=== PATIENT | male | born 1955 | race Caucasian/White ===

== ENCOUNTER 2018-05-07 06:40 | Day surgery (SDC) | payer OTHER ==
[~2018-05-07] VITALS: Ht 182.9 cm; Wt 115.9 kg
[2018-05-07] MEDS ORDERED: PLAVIX75 MG PO (07:04)
[2018-05-07 07:11] VITALS: Ht 182.9 cm; Wt 115.9 kg
[2018-05-07] MEDS ORDERED: METFORMIN HCL500 M1 PO (07:14)
[2018-05-07] MEDS ORDERED: NIACIN250 M1 PO (07:14)
[2018-05-07] MEDS ORDERED: MECLIZINE HCL25 MG PO (07:15)
[2018-05-07] MEDS ORDERED: GEMFIBROZIL600 MG PO (07:15)
[2018-05-07] MEDS ORDERED: ISOSORBIDE MONO30 M1 PO (07:16)
[2018-05-07] MEDS ORDERED: TOPROL XL25 MG PO (07:17)
[2018-05-07] MEDS ORDERED: BETAPACE160 MG PO (07:17)
[2018-05-07] MEDS ORDERED: CLARITIN 10 MG10 MG PO (07:17)
[2018-05-07] MEDS ORDERED: FLOMAX0.4 MG PO (07:19)
[2018-05-07] MEDS ORDERED: FAMOTIDINE10 MG PO (07:19)
[2018-05-07] MEDS ORDERED: ALLER-CHLOR4 MG PO (07:22)
[2018-05-07] MEDS ORDERED: ZOLOFT100 MG PO (07:22)
[2018-05-07 07:53] LABS: ANION GAP 16.6 mmol/L (8-16); CALCIUM 8.4 mg/dL (8.5-10.1); CARBON DIOXIDE 20.7 mmol/L (21.0-32.0); CREATININE - SERUM 1.1 mg/dL (0.6-1.3); POTASSIUM - SERUM 4.3 mmol/L (3.5-5.1)
[2018-05-07 08:29] LABS: BASOPHILS 1.3 % (0-2); EOSINOPHILS 9.1 % (0-7); HEMATOCRIT 37.3 % (42.0-54.0); HEMOGLOBIN 12.3 g/dL (13.5-17.5); IMMATURE GRANULOCYTES 0.2 % (0-5); LYMPHOCYTES 24.6 % (15-50); MCH 30.6 pg (26.0-34.0); MCV 92.8 fL (80.0-100.0); MEAN PLATELET VOLUME 11.2 fL (7.4-10.4); MONOCYTES 11.1 % (2-11); NEUTROPHILS 53.7 % (40-80); PLATELET COUNT 257 10x3/uL (130-400); RBC 4.02 10x6/uL (4.20-6.10); RDW 13.5 % (11.5-14.5); WBC 6.3 10x3/uL (4.8-10.8)
--- NOTE | 2018-05-07 16:48 | NUR ---
PER DR. AMY DC WHEN CRITERIA MET.
--- NOTE | 2018-05-07 17:32 | NUR ---
DC INSTRUCTIONS GIVEN TO PT. STATES UNDERSTANDING. DC'D IV CATH FULLY INTACT.
--- NOTE | 2018-05-07 18:16 | NUR ---
PT LEFT UNIT VIA WC AT 1812
--- NOTE | 2018-05-08 22:13 | OP ---
PATIENT NAME: MEENA ALVAREZ MEDICAL RECORD: [id number] :57 LOCATION:D.OPS ADMISSION DATE: SURGEON: DELMY REYES MD DATE OF OPERATION: 05/07/2018 PRINCIPAL DIAGNOSES: 1. Hematochezia. 2. History of a colorectal polypoid mass at 20 cm. POSTOPERATIVE DIAGNOSES: 1. Hematochezia. 2. History of a colorectal polypoid mass at 20 cm. This appeared to be a 5-cm carpeting polyp. PROCEDURES: 1. Total colonoscopy to cecum. 2. Polypectomy utilizing endoscopic mucosal resection as well as argon plasma coagulation therapy. 3. Tattooing proximal and distal to the polyp. SURGEON: Delmy Reyes MD [employer]AL [employer]ARD SUPERVISOR: None. BLOOD LOSS: Minimal. ANESTHESIA: IV sedation. COMPLICATIONS: None. The patient has only been off Plavix for one day. I would like for him to stay off Plavix for additional 4 days after the procedure as he is going to be at risk for both post-polypectomy syndrome as well as post-polypectomy bleeding. I have dismissed him back to the snf on Flagyl. It will be normal for him to have some minor bleeding after this procedure due to the large size of the polyp. OPERATIVE COURSE: The patient was conveyed to the GI lab electively on 05/07/2018. IV sedation was induced by the anesthesia staff. The patient was placed in the Rubin position. A digital rectal examination was performed. A colonoscope was inserted through the anus. It was easily advanced to the cecum. The prep was adequate. The patient has had a history of inadequate preps, but this prep was adequate. I slowly withdrew the endoscope. A combination of normal imaging as well as narrow band imaging was utilized. At 20 cm, I noted the polypoid mass. It comprised about a third of the circumference of the large bowel at this is likely at the colorectal junction. I advanced a sclerotherapy needle. A submucosal injection of Eleview was performed. I got a good lift of the polyp except centrally, which was not necessarily ulcerated, but it was certainly firmer as I found out later on. A submucosal injection of epinephrine was also performed in order to provide for postoperative hemorrhage abatement. I then took the snare and a piecemeal snare polypectomy of the polyp was OPERATIVE REPORT [id number] MEENA ALVAREZ performed utilizing the coagulation setting in the cut setting. The portions of the polyp were either sucked up into the polyp trap and were grasped with an endoscopic retrieval net and were withdrawn out through the anus. I then advanced the endoscope again. Multiple cold biopsies of the polyp were performed. At no time was there any apparent full-thickness injury. Some polypoid pieces were then ablated with the argon plasma pants busheler utilizing the right colon setting in the forced mode. There was no further bleeding. For easier identification, I elected to perform a submucosal tattooing with Samara ink. I advanced the sclerotherapy needle and performed a tattooing with 3 cc of Samara ink proximal and distal to the remnant of the polypoid mass. The endoscope was withdrawn under direct vision after a retroflexed view was obtained. I then unretroflexed the scope and removed it under direct vision. I will see the patient hopefully out at the GI clinic, at the [facility], sometime within the next month. We will to review the results of the biopsies. If there is an invasive component and this does represent a malignancy, then the patient will either need to undergo a primary resection or more likely preoperative chemotherapy and radiation followed by resection. If there is no invasive malignancy present, I am going to plan for another colonoscopy with possible endoscopic mucosal resection and treat with the argon plasma pants busheler to take place in a hospital in one year. TRANSINT:[id number] Voice Confirmation ID: [id number] DOCUMENT ID: [id number] DELMY REYES MD at 2213 CC: JULIOCESAR HICKEY MD, DELMY RYAN MD, BERNADETTE MOCK MD and [id number] L DICTATION DATE: 05/07/182003 RISK TECH: 05/08/18 0021 [facility] 05/07/18 [facility] [address] [id number]
== END 2018-05-07 18:13 | disposition home or self-care (01) ==
LOC: D.OPS 06:40
PROVIDERS: Anesthesiology
DX: K63.5 Polyp of colon (principal); K92.1 Melena; Z86.010 Personal history of colon polyps